=== PATIENT | female | born 1980 | race Caucasian/White ===

== ENCOUNTER 2018-03-28 09:52 | Outpatient (CLI) | payer BC ==
[~2018-03-28] VITALS: Ht 161.3 cm; Wt 81.6 kg
[~2018-03-28 09:52] MED LIST: LEVO137T24 PO; OMEP-10 PO; OXYC500S2 PO; ROPI2TAB3 PO
[2018-03-28] MEDS ORDERED: DULO30CA3 PO (10:17)
[2018-03-28] MEDS ORDERED: PRAM1.5T3 PO (10:17)
[2018-03-28] MEDS ORDERED: RT-ALBUINH IH (11:14)
[2018-03-29] MEDS ORDERED: HYDR-34 PO (12:42)
== END 2018-03-28 11:22 | disposition home or self-care (01) ==
LOC: PREOP 09:52
PROVIDERS: ATTEND Surgery
DX: Z01.818 Encounter for other preprocedural examination (principal)

== ENCOUNTER 2018-03-29 09:00 | Day surgery (SDC) | payer BC ==
[~2018-03-29] VITALS: Ht 161.3 cm; Wt 81.6 kg
[~2018-03-29 09:00] MED LIST changes: +DULO30CA3 PO; +PRAM1.5T3 PO; +RT-ALBUINH IH
[2018-03-29 09:15] VITALS: BP 126/76
[2018-03-29] MEDS ORDERED: ceFAZolin 2 GM IV Premixed 50 ML IV ONE (09:15)
[2018-03-29] MEDS: LACTATED RINGERS 1,000 ML IV PRN ×2 (10:00→11:40)
--- NOTE | 2018-03-29 10:01 | Diagnostic Imaging Report ---
INDICATION: Preoperative evaluation prior to lap-band surgery. PA and lateral views of the chest are obtained. Comparison is made study of 04/27/2011. FINDINGS: Heart size and pulmonary vascularity are within normal limits, and the lungs are clear, bilaterally. Lap band device projects over left upper quadrant of the abdomen. IMPRESSION: Unremarkable chest. Dictated by: Dictated on workstation # [id number]
[2018-03-29] MEDS ORDERED: fentaNYL INJECTION 100 MCG/2 ML AMP IV ONE (10:15)
[2018-03-29] MEDS ORDERED: BUP/EPI 0.5% 1:200,000 (SENSORCAINE) 30 ML VIAL ONE (11:35)
--- NOTE | 2018-03-29 11:55 | Progress Note-Pre Operative ---
Pre-Operative Progress Note H&P Reviewed The H&P was reviewed, patient examined and no changes noted. Date Seen by Provider: Mar 29, 2018 Time Seen by Provider: 11:00 Date H&P Reviewed: Mar 29, 2018 Time H&P Reviewed: 11:00 Pre-Operative Diagnosis: chronic calculous cholecystitis UZIEL VASQUEZ MD Mar 29, 2018 11:55 am
[2018-03-29] MEDS ORDERED: MIDAZOLAM 2 MG/2 ML (VERSED) VIAL ONE (12:05)
[2018-03-29] MEDS ORDERED: fentaNYL INJECTION 100 MCG/2 ML AMP ONE (12:05)
[2018-03-29] MEDS ORDERED: LIDOCAINE PF 2% 5 ML (XYLOCAINE) VIAL ONE (12:13)
[2018-03-29] MEDS ORDERED: proPOfol 200 MG/20 ML (DIPRIVAN) VIAL IV ONE (12:13)
[2018-03-29] MEDS ORDERED: DEXAMETHASONE 10 MG/ML (DECADRON) 1 ML VIAL ONE (12:14)
[2018-03-29] MEDS ORDERED: ONDANSETRON 4 MG/2 ML (SDV) Z0FRAN ONE (12:14)
[2018-03-29] MEDS ORDERED: HYDR-34 PO (12:42)
[2018-03-29] MEDS ORDERED: RT-ALBUTEROL HFA (VENTOLIN) PER PUFF IH ONE (12:42)
--- NOTE | 2018-03-29 12:44 | Discharge Inst-Surgical ---
D/C Lap Instructions-PEDRO New, Converted, or Re-Newed RX: RX on Chart Follow Up Appt. will call Activity as tolerated No driving for 24 hours No driving while on pain medications Incentive Spirometry use every 2 hours while awake Regular Diet Symptoms to Report: Fever over 101 degree F, Nausea/Vomiting Infection Signs and Symptoms to report: Increased redness, Foul odor of wound, Increased drainage Bathing instructions: May shower Operative Area Clean/Dry; Keep incision clean/dry If any problems/questions: Contact your physician or go to Emergency Room UZIEL VASQUEZ MD Mar 29, 2018 12:44 pm
[2018-03-29] MEDS ORDERED: ACETAMINOPHEN 325 MG TABLET PO PRN (12:45)
[2018-03-29] MEDS ORDERED: morphine INJ 10 MG/ML 1ML (SYR OR VIAL) IVP PRN (12:45)
[2018-03-29] MEDS ORDERED: ONDANSETRON 4 MG/2 ML (SDV) Z0FRAN IVP PRN ×2 (12:45→13:45)
[2018-03-29] MEDS ORDERED: ROCURONIUM 10 MG/ML 5 ML SYRINGE IV ONE (12:50)
[2018-03-29] MEDS ORDERED: SEVOFLURANE (ULTANE) 15 ML INHAL SOLN ONE ×4 (12:51→13:27)
[2018-03-29] MEDS ORDERED: GLYCOPYRROLATE 0.2 MG/ML (ROBINUL) 2 ML VIAL ONE (13:05)
[2018-03-29] MEDS ORDERED: NEOSTIGMINE 1 MG/ML 5 ML SYRINGE ONE (13:05)
[2018-03-29] MEDS ORDERED: KETOROLAC 30 MG/ML VIAL ONE (13:07)
--- NOTE | 2018-03-29 13:09 | Progress Note-Post Operative ---
Post-Operative Progess Note Surgeon (s)/Toll Operator (s) Surgeon UZIEL VASQUEZ MD Toll Operator: smooth allen DIRECTOR STAFFING Pre-Operative Diagnosis chronic calculous cholecystitis Post-Operative Diagnosis same Procedure & Operative Findings Date of Procedure 03/29/18 Procedure Performed/Findings laparoscopic cholecystectomy Anesthesia Type GET Estimated Blood Loss Estimated blood loss (mL): minimal Specimens/Packing Specimens Removed gallbladder UZIEL VASQUEZ MD Mar 29, 2018 1:09 pm
[2018-03-29] MEDS ORDERED: morphine INJ 10 MG/ML 1ML (SYR OR VIAL) ONE ×2 (13:12→13:49)
[2018-03-29] MEDS ORDERED: morphine INJ 10 MG/ML 1ML (SYR OR VIAL) IVP ONE (13:45)
[2018-03-29] MEDS: HYDROcodone/APAP 7.5 MG/325 MG (LORTAB, LORCET PLUS) TABLET PO PRN ×2 (15:25→20:01)
[2018-03-29 16:01] VITALS: BP 91/50
[2018-03-29 16:55] VITALS: BP 91/50
[2018-03-29] MEDS ORDERED: FLU QUADRIvalent (5+ YOA) 2018-2019 (AFLURIA) 0.5 ML IM ONE (17:00)
[2018-03-29 19:15] VITALS: BP 107/59
--- NOTE | 2018-03-29 22:07 | OPERATIVE REPORT ---
DATE OF SERVICE: 03/29/2018 PREOPERATIVE DIAGNOSIS: Symptomatic chronic calculous cholecystitis. POSTOPERATIVE DIAGNOSIS: Symptomatic chronic calculous cholecystitis. PROCEDURE: Laparoscopic cholecystectomy. SURGEON: Uziel Vasquez MD FREIGHT COORDINATOR: Romaine Akhtar APRN ANESTHESIA: General endotracheal. ESTIMATED BLOOD LOSS: Minimal. FINDINGS: Mild gallbladder wall dilatation as well as mild gallbladder thickening. Multiple large gallstones. Lap band in proper positioning at approximately the 2 and 8 o'clock position of the upper portion of the stomach. DISPOSITION: The patient tolerated the procedure well. INDICATIONS: The patient is a 37-year-old female known to us. We had initially seen her for morbid obesity as well as medical comorbidities including hypertension, hypercholesterolemia. She is status post laparoscopic adjustable gastric band placement with an Plug.dj AP standard band in 2010. She has done well with weight loss and has kept her weight off. Her initial weight was approximately 300 pounds and she is currently at approximately 180 pounds. She states that she has had pain in the right upper abdominal quadrant usually after meals with intermittent episodes of nausea and vomiting. This was initially mild and infrequent; however, has become much more frequent and this was usually after eating a meal. An ultrasound was performed, which did show gallstones. DESCRIPTION OF PROCEDURE: The patient was brought to the operating room, laid supine on the table. After adequate IV and pain and sedating medications and general endotracheal intubation, the abdomen was prepped and draped in standard surgical fashion. A 0.5% Marcaine with epinephrine was then used to anesthetize the overlying skin in the left upper abdominal quadrant. A small transverse skin incision made using a 15 blade. An 0 silk suture was applied to the medial aspect of the incision for retraction and a Veress needle inserted with a low opening pressure of 0 mmHg and the abdomen was then insufflated to 15 mmHg pressure. The Veress needle removed and a 5 mm Xcel trocar placed followed by a 5 mm 45-degree angle laparoscope. A 4-quadrant abdominal exploration was performed. There was a mild gallbladder wall dilatation as well as gallstones identified ex vivo. After the patient was placed in reverse Trendelenburg position, the laparoscopic adjustable gastric band was identified in approximately the 2 and 8 o'clock position, which was proper and no band erosion identified. Under direct visualization, we then proceeded to place a supraumbilical 10 mm port after the skin and peritoneal lining were anesthetized using 0.5% Marcaine with epinephrine and a transverse skin incision made using 15 blade. In a similar fashion, a right upper abdominal quadrant 5 mm port was placed. The gallbladder was then retracted anteriorly and superiorly. The hepatoduodenal ligament was then opened using electrocautery as well as blunt dissection using a hook instrument. The entire critical view of safety was identified including the triangle of Calot as well as the cystic duct and arteries as the only two structures going into the gallbladder as well as the cystic plate behind the proximal gallbladder. A timeout was then taken and the cystic duct and artery were then clipped proximally, distally and cut with EndoShears. The gallbladder was then dissected off the liver bed using electrocautery and hook instrument with visualization of good hemostasis as well as no leaking ducts of Luschka. The gallbladder was removed through the 10 mm port site using an EndoCatch bag. A 10 mm port site fascia and peritoneum were then closed under direct visualization using a Jay Jay-Hilary device and 0 Vicryl suture. The abdomen was desufflated and remaining ports removed. All skin incisions were closed using 4-0 Monocryl running subcuticular sutures. Wounds were then cleaned and covered with Dermabond. The patient tolerated the procedure well. We will admit her for observation due to pain as well as nausea. We will also start IV and oral pain medication as well as a clear liquid diet and advance as tolerated. When she is tolerating clears, has good pain control with oral pain medications, is ambulating well, we will discharge her home. She will be instructed to do no heavy lifting or exertion for the next two weeks. Job ID: [id number] DocumentID: [id number] Dictated Date: 03/29/2018 13:18:03 Client Manager Large Law Date: 03/29/2018 22:06:32 Dictated By: UZIEL VASQUEZ MD
[2018-03-30] VITALS: BP 113/60
[2018-03-30 01:02] VITALS: BP 113/60
[2018-03-30 04:00] VITALS: BP 96/52
[2018-03-30] MEDS: HYDROcodone/APAP 7.5 MG/325 MG (LORTAB, LORCET PLUS) TABLET PO PRN ×3 (04:19→12:37)
[2018-03-30 08:00] VITALS: BP 122/69
--- NOTE | 2018-03-30 08:57 | Anesthesia-General Post-Op ---
General Patient Condition Mental Status/LOC: Same as Preop Cardiovascular: Satisfactory Nausea/Vomiting: Absent Respiratory: Satisfactory Pain: Controlled Complications: Absent Post Op Complications Complications None Follow Up Care/Instructions Patient Instructions None needed. Anesthesia/Patient Condition Patient Condition Patient is doing well, no complaints, stable vital signs, no apparent adverse anesthesia problems. No complications reported per nursing. ZAHEER BUCHANAN CRNA Mar 30, 2018 08:57
--- NOTE | 2018-03-30 12:42 | Progress Note (SOAP) ---
Subjective Date Seen by a Provider: Mar 30, 2018 Time Seen by a Provider: 12:00 Subjective/Events-last exam doing well. breathing much better. tolerating diet. pain controlled. Objective Exam Vital Signs Date Time Temp Pulse Resp B/P (MAP) Pulse Ox O2 Delivery O2 Flow Rate FiO2 03/30/18 08:00 98.3 60 20 122/69 (86) 97 Room Air 03/30/18 08:00 Room Air 03/30/18 04:00 98.2 53 18 96/52 (67) 94 Room Air 03/30/18 01:02 97.7 54 16 113/60 (77) 95 Room Air 03/30/18 00:00 97.7 54 16 113/60 (77) 95 Room Air 03/29/18 20:00 Room Air 03/29/18 19:15 98.6 55 18 107/59 (75) 91 Room Air 03/29/18 16:55 98.6 58 18 91/50 (64) 94 03/29/18 15:30 Room Air I & O 03/30/18 07:00 Intake Total 1640 ml Balance 1640 ml Capillary Refill : General Appearance: No Apparent Distress HEENT: PERRL/EOMI Neck: Full Range of Motion Respiratory: Chest Non Tender, Normal Breath Sounds, Wheezing Cardiovascular: Regular Rate, Rhythm Gastrointestinal: normal bowel sounds, soft, tenderness Extremity: Normal Capillary Refill Neurologic/Psychiatric: Alert, Oriented x3 Skin: Normal Color Lymphatic: No Adenopathy Assessment/Plan Assessment/Plan Assess & Plan/Chief Complaint s/p laparoscopic cholecystectomy with reactive airway disease. breathing much better. ambulating well. home soon. Clinical Quality Measures DVT/VTE Risk/Contraindication: Risk Factor Score Per Nursin RFS Level Per Nursing on Admit: 1=Low/No VTE PPX UZIEL VASQUEZ MD Mar 30, 2018 12:42 pm
--- NOTE | 2018-03-30 12:43 | Discharge Inst-Surgical ---
D/C Lap Instructions-PEDRO Follow Up PRN or call if issues. Activity as tolerated No driving for 24 hours No driving while on pain medications Incentive Spirometry use every 2 hours while awake Regular Diet Symptoms to Report: Fever over 101 degree F, Nausea/Vomiting Infection Signs and Symptoms to report: Increased redness, Foul odor of wound, Increased drainage Bathing instructions: May shower Operative Area Clean/Dry; Keep incision clean/dry If any problems/questions: Contact your physician or go to Emergency Room UZIEL VASQUEZ MD Mar 30, 2018 12:43 pm
[2018-03-30 13:13] VITALS: BP 122/69
== END 2018-03-30 13:04 | disposition home or self-care (01) ==
LOC: SDC 09:00 → 4TH 14:20 → SDC 03-30 13:04
PROVIDERS: ATTEND Surgery
DX: K80.10 Calculus of gallbladder with chronic cholecystitis without obstruction (principal); Z11.2 Encounter for screening for other bacterial diseases; Z98.84 Bariatric surgery status; K21.9 Gastro-esophageal reflux disease without esophagitis; F17.210 Nicotine dependence, cigarettes, uncomplicated; Z80.8 Family history of malignant neoplasm of other organs or systems; J45.909 Unspecified asthma, uncomplicated; E66.9 Obesity, unspecified; Z68.31 Body mass index [BMI] 31.0-31.9, adult; Z79.899 Other long term (current) drug therapy
CPT/HCPCS: 71046; 87081; 88304; 94664

== ENCOUNTER 2018-10-24 13:20 | Outpatient (CLI) | payer BC ==
[~2018-10-24] VITALS: Ht 161.3 cm; Wt 81.6 kg
[~2018-10-24 13:20] MED LIST changes: +HYDR-34 PO
[2018-10-25] MEDS ORDERED: HYDR-34 PO (12:59)
== END 2018-10-24 13:40 | disposition home or self-care (01) ==
LOC: PREOP 13:20
PROVIDERS: ATTEND Surgery
DX: Z01.818 Encounter for other preprocedural examination (principal)

== ENCOUNTER 2018-10-25 11:11 | Day surgery (SDC) | payer BC ==
[2018-10-25] VITALS (12 sets, daily range): BP systolic 97–132; BP diastolic 56–79
[~2018-10-25] VITALS: Ht 162.6 cm; Wt 81.6 kg
[2018-10-25] MEDS ORDERED: CLINDAMYCIN 600 MG/50 ML IVPB 50 ML IV ONE ×2 (11:50→12:00)
[2018-10-25 12:04] LABS: BASOPHILS % (AUTO) 0 % (0-10); EOSINOPHILS # (AUTO) 0.3 10^3/uL (0.0-0.3); EOSINOPHILS % (AUTO) 5 % (0-10); HEMATOCRIT 44 % (35-52); HEMOGLOBIN 14.7 G/DL (11.5-16.0); LYMPHOCYTES # (AUTO) 1.8 X 10^3 (1.0-4.0); LYMPHOCYTES % (AUTO) 35 % (12-44); MEAN CORPUSCULAR HEMOGLOBIN 28 PG (25-34); MEAN CORPUSCULAR HGB CONC 34 G/DL (32-36); MEAN CORPUSCULAR VOLUME 84 FL (80-99); MEAN PLATELET VOLUME 11.5 FL (7.4-10.4); MONOCYTES # (AUTO) 0.4 X 10^3 (0.0-1.0); MONOCYTES % (AUTO) 7 % (0-12); NEUTROPHILS # (AUTO) 2.7 X 10^3 (1.8-7.8); NEUTROPHILS % (AUTO) 53 % (42-75); PLATELET COUNT 171 10^3/uL (130-400); RED CELL DISTRIBUTION WIDTH 14.2 % (10.0-14.5); WHITE BLOOD COUNT 5.2 10^3/uL (4.3-11.0)
[2018-10-25] MEDS: LACTATED RINGERS 1,000 ML IV PRN ×2 (12:15→16:16)
--- NOTE | 2018-10-25 12:58 | Progress Note-Pre Operative ---
Pre-Operative Progress Note H&P Reviewed The H&P was reviewed, patient examined and no changes noted. Date Seen by Provider: October 25, 2018 Time Seen by Provider: 12:30 Date H&P Reviewed: October 25, 2018 Time H&P Reviewed: 12:30 Pre-Operative Diagnosis: hx small bowel obstruction and internal hernia. UZIEL VASQUEZ MD October 25, 2018 12:58
[2018-10-25] MEDS ORDERED: HYDR-34 PO (12:59)
[2018-10-25] MEDS ORDERED: ONDANSETRON 4 MG/2 ML (SDV) Z0FRAN IVP PRN ×2 (13:00→16:15)
[2018-10-25] MEDS ORDERED: ACETAMINOPHEN 325 MG TABLET PO PRN (13:00)
[2018-10-25] MEDS ORDERED: morphine INJ 10 MG/ML 1ML (SYR OR VIAL) IVP PRN ×2 (13:00)
--- NOTE | 2018-10-25 13:00 | Discharge Inst-Surgical ---
D/C Lap Instructions-PEDRO New, Converted, or Re-Newed RX: RX on Chart Follow Up Appt in 2 weeks Activity as tolerated No driving for 24 hours No driving while on pain medications Incentive Spirometry use every 2 hours while awake Regular Diet Symptoms to Report: Fever over 101 degree F, Nausea/Vomiting Infection Signs and Symptoms to report: Increased redness, Foul odor of wound, Increased drainage Bathing instructions: May shower Operative Area Clean/Dry; Keep incision clean/dry If any problems/questions: Contact your physician or go to Emergency Room UZIEL VASQUEZ MD October 25, 2018 13:00
[2018-10-25] MEDS ORDERED: BUP/EPI 0.5% 1:200,000 (SENSORCAINE) 30 ML VIAL ONE (13:58)
[2018-10-25] MEDS ORDERED: MIDAZOLAM 2 MG/2 ML (VERSED) VIAL ONE (14:18)
[2018-10-25] MEDS ORDERED: fentaNYL INJECTION 100 MCG/2 ML AMP ONE ×2 (14:18→15:41)
[2018-10-25] MEDS ORDERED: proPOfol 200 MG/20 ML (DIPRIVAN) VIAL IV ONE ×2 (14:18→15:42)
[2018-10-25] MEDS ORDERED: GLYCOPYRROLATE 0.2 MG/ML (ROBINUL) 2 ML VIAL ONE ×2 (14:18→15:36)
[2018-10-25] MEDS ORDERED: DEXAMETHASONE 10 MG/ML (DECADRON) 1 ML VIAL ONE (14:18)
[2018-10-25] MEDS ORDERED: LIDOCAINE PF 2% 5 ML (XYLOCAINE) VIAL ONE (14:18)
[2018-10-25] MEDS ORDERED: NEOSTIGMINE 1 MG/ML 5 ML SYRINGE ONE ×2 (14:18→15:36)
[2018-10-25] MEDS ORDERED: SEVOFLURANE (ULTANE) 15 ML INHAL SOLN ONE ×2 (14:18→15:35)
[2018-10-25] MEDS ORDERED: ROCURONIUM 10 MG/ML 5 ML SYRINGE IV ONE (14:18)
[2018-10-25] MEDS ORDERED: ONDANSETRON 4 MG/2 ML (SDV) Z0FRAN ONE (14:18)
[2018-10-25] MEDS: oxyCODONE/APAP 5/325MG (PERCOCET 5) TABLET PO PRN ×2 (15:23→17:23)
[2018-10-25] MEDS ORDERED: KETOROLAC 30 MG/ML VIAL ONE (15:46)
--- NOTE | 2018-10-25 15:52 | Progress Note-Post Operative ---
Post-Operative Progess Note Surgeon (s)/Sales Development Manager (s) Surgeon UZIEL VASQUEZ MD Sales Development Manager: smooth allen APRN Pre-Operative Diagnosis hx small bowel obstruction and internal hernia. Post-Operative Diagnosis same Procedure & Operative Findings Date of Procedure 10/25/18 Procedure Performed/Findings adjustment band tubing and subcutaneous adjustment device. Anesthesia Type GET Estimated Blood Loss Estimated blood loss (mL): minimal Specimens/Packing Specimens Removed none UZIEL VASQUEZ MD October 25, 2018 15:52
[2018-10-25] MEDS ORDERED: HYDROmorphone 2 MG/ML VIAL (DILAUDID) ONE (16:08)
[2018-10-25] MEDS ORDERED: HYDROmorphone 2 MG/ML VIAL (DILAUDID) IV ONE (16:15)
--- NOTE | 2018-10-25 18:52 | Anesthesia-General Post-Op ---
General Patient Condition Mental Status/LOC: Same as Preop Cardiovascular: Satisfactory Nausea/Vomiting: Absent Respiratory: Satisfactory Pain: Controlled Complications: Absent Post Op Complications Complications None Follow Up Care/Instructions Patient Instructions None needed. Anesthesia/Patient Condition Patient Condition Patient is doing well, no complaints, stable vital signs, no apparent adverse anesthesia problems. No complications reported per nursing. D/C home per [facility] Criteria: Yes SHEEBA CHOWDHURY CRNA October 25, 2018 18:52
--- NOTE | 2018-10-25 21:49 | OPERATIVE REPORT ---
DATE OF SERVICE: 10/25/2018 ATTENDING PRIMARY CARE PHYSICIAN: ЮЛИЯ Lackey. PREOPERATIVE DIAGNOSES: History of partial small bowel obstruction and internal herniation, greater than 90-degree flipped subcutaneous adjustment device for laparoscopic adjustable gastric band. POSTOPERATIVE DIAGNOSIS: Redundant band tubing, previous history of internal small bowel hernia and partial small-bowel obstruction. PROCEDURE PERFORMED: Adjustment intraperitoneal band tubing and subcutaneous adjustment device. SURGEON: Uziel Vasquez MD. DIGITAL ASSET MANAGER: Romaine Akhtar APRN. ANESTHESIA: General endotracheal. ESTIMATED BLOOD LOSS: Minimal. FINDINGS: Greater than 90-degree inferior port flip. There was a significant redundancy in length of the band tubing, most likely secondary to body habitus and change in weight loss. DISPOSITION: The patient tolerated the procedure well. INDICATIONS: The patient is a 38-year-old female known to us. We had initially seen her in 2010 for morbid obesity as well as medical comorbidities including hypertension and gastroesophageal reflux disease. She underwent a laparoscopic adjustable gastric band placement within Allerg APS band on 05/05/2011. She lost approximately 180 pounds over eight years and did develop pain in the right upper abdominal quadrant. An ultrasound was performed, which did show gallbladder wall thickening as well as gallstones and this was also confirmed on an MRI of the abdomen and she then underwent a laparoscopic cholecystectomy on 03/29/2018. She presented to her nearby hospital in [place], [place] due to acute onset of abdominal pain. A CT scan was performed, which did show some dilated loops of small bowel and she continued to have pain and was brought to the operating room on 10/17/2018, underwent diagnostic laparoscopy and found to have some form of internal herniation of small bowel around the adjustable gastric band tubing. This was unraveled and there did not appear to be any ischemic changes, only mild amount of irritation along the bowel mesentery. She also underwent a laparoscopic appendectomy to eliminate this as a etiology of a potential source of recurrent pain. Based on her symptomatology as well as a significant weight loss, she more than likely has redundancy of her mesentery and loops of small bowel and also result of redundancy of the band tubing which did cause a temporary obstruction due to an internal hernia type of scenario. The patient also does have a flipped port, which is greater than 90 degrees inferior. Due to these issues and risk of recurrent internal herniation, incarceration and strangulation, we will recommend removing the redundancy of the length of the band tubing as well as to reposition the port. DESCRIPTION OF PROCEDURE: The patient was brought to the operating room, laid supine on the table. After adequate IV pain and sedative medications and general endotracheal intubation, the abdomen was prepped and draped in standard surgical fashion. A 0.5% Marcaine with epinephrine was used to anesthetize overlying skin above the previous port incision along the right upper abdomen. A skin incision was then made using a 15-blade. Subcutaneous tissue was dissected down to the port. The port was flipped inferiorly slightly greater than 90 degrees. The capsule inside the port was then opened using cautery. The base of the port was then clamped with a Liudmila and pulled superiorly and the previous Surgidac sutures identified and cut out using suture scissors and the port was completely eviscerated out of the capsule. The capsule was also excised using electrocautery. The band tubing was then dissected down to the fascial base and then pulled and the redundancy pulled without any resistance until there was a mild resistance. Approximately, 8-10 cm segment of the tubing was then excised after the proximal and distal ends were clamped with mosquito clamps with a rubber shod on them. There was then no loss of any fluid within the band itself or remainder of the tubing. The port was then placed onto the band tubing with the same through a metal adapter. There was no resistance on the tubing. We then proceeded to reposition the port slightly superior to the previous site and an area along the fascia was cleared off using electrocautery. We then proceeded to place #1 Prolene sutures on 4-quadrants of the fascia and the port sutured down to the fascia. The subcutaneous tissue was then reapproximated using 3-0 Vicryl interrupted suture and the skin was closed using 4-0 Monocryl running subcuticular suture and covered with Dermabond. The patient tolerated the procedure well. We will start IV and oral pain medication as well as a clear liquid diet. Once she is tolerating clears, has good pain control with oral pain medication and is ambulating well, we will discharge her home. We will recommend a clear liquid diet today; however, will go back to her normal diet as she was on before the procedure. We will also recommend continued medical management with a high protein diet with lean meat protein sources as well as regularly scheduled exercise. We will have followup in approximately 2 weeks. Job ID: [id number] DocumentID: [id number] Dictated Date: 10/25/2018 16:06:18 Sql Engineer Date: 10/25/2018 21:49:04 Dictated By: UZIEL VASQUEZ MD MTDD
--- NOTE | 2018-10-29 08:33 | HISTORY AND PHYSICAL ---
DATE OF ADMISSION: 10/25/2018. ATTENDING PRIMARY CARE PHYSICIAN: ЮЛИЯ Lackey. HISTORY OF PRESENT ILLNESS: The patient is a 38-year-old female known to us. We had initially seen her in 2010 for morbid obesity as well as medical comorbidities related to her obesity including hypertension and gastroesophageal reflux disease. She underwent a laparoscopic adjustable gastric band placement with an Allergan APS band on 05/05/2011. She has lost approximately 180 pounds over eight years. She did have develop pain in the right upper abdominal quadrant and an ultrasound was performed, which did show gallbladder wall thickening as well as gallstones. This was also confirmed on MRI of the abdomen. She underwent a laparoscopic cholecystectomy on 03/29/2018. She presented to her nearby hospital in [place], [place] due to acute onset of abdominal pain. A CT scan was performed, which did show some dilated loops of small bowel. She continued to have pain and was brought to the operating room on 10/17/2018 and underwent a diagnostic laparoscopy and was found to have a form of internal herniation of small bowel around the adjustable gastric band tubing. This was unraveled and there did not appear to be any ischemic changes with a mild amount of irritation along the bowel mesentery. The patient also underwent a laparoscopic appendectomy to eliminate this as part of the differential diagnosis if she had recurrent pain. Based on her symptomatology, due to her significant weight loss she more than likely does have some redundancy of her mesentery and loops of small bowel and there is some redundancy in the band tubing and this did cause a temporary obstruction due to an internal hernia type of scenario. The patient also does have a flipped port. Due to these issues and risk of recurrent internal herniation, incarceration as well as strangulation we will recommend removing the redundancy of the tubing in her band due to her change in body habitus with her weight loss as well as repositioning of the port. PAST MEDICAL HISTORY: Gastroesophageal reflux disease. PAST SURGICAL HISTORY: Total hysterectomy in 2017, laparoscopic adjustable gastric band with Allergan APS band in 2010, right knee arthroscopy in 2016, laparoscopic cholecystectomy on 03/29/2018. ALLERGIES: No known drug allergies. MEDICATIONS: Mirapex 1 mg daily, Cymbalta 30 mg daily, Symbicort 1 puff daily, albuterol p.r.n., estradiol patch. SOCIAL HISTORY: Positive smoke 7.5 pack years. Negative alcohol. FAMILY HISTORY: Sister papillary thyroid cancer. VITAL SIGNS: Blood pressure 112/62. Current weight 180 pounds at 5 feet 4 inches. REVIEW OF SYSTEMS: This is well-nourished female, currently in no acute distress. She is not experiencing any shortness of breath or difficulty breathing. No chest pain, palpitations, or diaphoresis. No nausea or vomiting. No diarrhea or constipation. No red blood per rectum, no dark tarry stools. No fever or chills. No recent inadvertent weight loss. All other review of systems negative. PHYSICAL EXAMINATION: CHEST: Clear. Good breath sounds bilaterally. HEART: Regular, no murmurs. EXTREMITIES: No lower extremity edema, negative Homans sign. HEENT: No scleral icterus. NECK: No cervical lymphadenopathy. ABDOMEN: Soft with some mild tenderness around the port, which is flipped approximately greater than 90 degrees from horizontal. There is mild discomfort along the mid abdominal region; however, no peritoneal signs. There is no abdominal distention. SKIN: Warm and dry. 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 This is a rare entity; however, due to significant weight loss and change in body habitus there does seem to be an increased in redundancy of mesentery and loops of small bowel, which may increase the incidence of this phenomenon. In this scenario recommendation is to remove the laxity of the band where her band tubing where it is only in the upper portion of the upper abdomen to prevent recurrent issues with internal herniation and risk of bowel obstruction and potential incarceration and strangulation of small bowel. She also does have a greater than 90 degree port flip, which we will reset in a horizontal plane. Job ID: [id number] DocumentID: [id number] Dictated Date: 10/24/2018 16:39:32 Administrative Operations Coordinator Date: 10/24/2018 17:13:41 Dictated By: UZIEL VASQUEZ MD <Dictated by UZIEL VASQUEZ MD> <Electronically signed by UZIEL VASQUEZ MD> 10/25/18 0913
== END 2018-10-25 18:15 | disposition home or self-care (01) ==
LOC: SDC 11:11
PROVIDERS: ATTEND Surgery
DX: K95.09 Other complications of gastric band procedure (principal); K21.9 Gastro-esophageal reflux disease without esophagitis; F17.210 Nicotine dependence, cigarettes, uncomplicated; J45.909 Unspecified asthma, uncomplicated; E66.9 Obesity, unspecified; Z68.31 Body mass index [BMI] 31.0-31.9, adult; Z79.899 Other long term (current) drug therapy
CPT/HCPCS: 36415; 85025; 87081

== ENCOUNTER 2020-07-17 05:51 | Outpatient (RCR) | payer BC ==
[~2020-07-17] VITALS: Ht 165.1 cm; Wt 77.2 kg
[2020-07-20] MEDS ORDERED: LEVO50CA4 PO (13:55)
[2020-07-22] MEDS ORDERED: PANT40TA2 PO (11:57)
== END 2020-07-20 15:40 | disposition home or self-care (01) ==
LOC: PREOP 05:51
PROVIDERS: ATTEND Surgery
DX: Z01.818 Encounter for other preprocedural examination (principal)

== ENCOUNTER 2020-07-22 11:33 | Day surgery (SDC) | payer BC ==
--- NOTE | 2020-07-18 17:44 | HISTORY AND PHYSICAL ---
DATE OF SERVICE: ATTENDING PRIMARY CARE PHYSICIAN: ЮЛИЯ Lackey. HISTORY OF PRESENT ILLNESS: The patient is a 39-year-old female known to us. We had initially seen her in 2010 for morbid obesity as well as medical comorbidities including hypertension, gastroesophageal reflux disease. She underwent a laparoscopic adjustable gastric band with an [employer] AP standard band on 07/06/2010. She has lost approximately 180 pounds over 8 years. She did develop pain in the right upper abdominal quadrant and an ultrasound was performed, which did show gallbladder wall thickening, gallstones and she underwent a laparoscopic cholecystectomy on 03/29/2018. She had another issue with acute onset of abdominal pain in the left upper abdominal quadrant and a CT scan was performed, which again only showed dilated loops of small bowel. On 10/17/2018, she underwent a diagnostic laparoscopy and was found to have a form of internal herniation of small bowel around the adjustable gastric band tubing, which was unraveled and there were no ischemic changes identified. She continues to have issues with significant reflux as well as intermittent dysphagia despite doing frequent lap band adjustments. All the fluid was removed from the band recently and she did undergo an upper GI contrast study at a local hospital closer to home, which did not show any obstruction; however, we do suspect the patient does have inferior band slippage. She also has developed continued epigastric pain as well as dark stools. PAST MEDICAL HISTORY: Gastroesophageal reflux disease. PAST SURGICAL HISTORY: Total hysterectomy in 2016, laparoscopic adjustable gastric band in 2010, right knee arthroscopy in 2016, laparoscopic cholecystectomy on 03/29/2018, diagnostic laparoscopy and lysis of adhesions as well as adjustment of the subcutaneous adjustment device on 10/25/2018. ALLERGIES: No known drug allergies. MEDICATIONS: Mirapex 1 mg daily, Cymbalta 30 mg daily, Symbicort 1 puff b.i.d., albuterol p.r.n., estradiol patch. SOCIAL HISTORY: Positive smoke 7-pack years. Negative alcohol. FAMILY HISTORY: Sister papillary thyroid cancer. VITAL SIGNS: Stable. Blood pressure 112/62. Current weight 164.3 pounds at 5 feet 5 inches and a body mass index of 27.4. REVIEW OF SYSTEMS: Well-nourished female, currently in no acute distress. She is not experiencing any shortness of breath or difficulty breathing. No chest pain, palpitations, diaphoresis. Intermittent episodes of epigastric sharp pain, no recent nausea nor vomiting as well as no hematemesis, no coffee ground emesis. She does also report noticing dark stools in the past few weeks as well. No fever, chills, no recent inadvertent weight loss. All other review of systems negative. PHYSICAL EXAMINATION: CHEST: Clear. Good breath sounds bilaterally. HEART: Regular, no murmurs. EXTREMITIES: No lower extremity edema, negative Homans sign. HEENT: No scleral icterus. NECK: No cervical lymphadenopathy. ABDOMEN: Soft, nondistended. There is pain in the epigastric as well as left upper abdominal quadrant upon deep palpation; however, no peritoneal signs. There are no hernias palpable. SKIN: Warm, dry. ASSESSMENT AND PLAN: A 39-year-old female with frequent gastroesophageal reflux disease and regurgitation despite medical compliance, status post adjustable gastric band as well as adequate adjustments as well as the development of dark tarry stools. We will proceed with an EGD as well as biopsies as well as a colonoscopy. If the band has slipped inferiorly, which we do have a high suspicion. We will then later proceed with removal of the laparoscopic adjustable gastric band. Job ID: [id number] DocumentID: [id number] Dictated Date: 07/18/2020 16:40:15 Scheduling Clerk Date: 07/18/2020 17:10:33 Dictated By: UZIEL VASQUEZ MD
[~2020-07-22] VITALS: Ht 165.1 cm; Wt 77.2 kg
[~2020-07-22 11:33] MED LIST changes: +LEVO50CA4 PO
--- NOTE | 2020-07-22 11:56 | Conscious Sedation/ASA ---
Conscious Sedation Pre-Proced Time 11:30 ASA Score 2 For ASA 3 and 4: Consider anesthesia and medical clearance. Also, for patients with a history of failed moderate sedation consider anesthesia. Airway Lungs Heart ASA score ASA 1: a normal healthy patient ASA 2: a patient with a mild systemic disease (mid diabetes, controlled hypertension, obesity ASA 3: a patient with a severe systemic disease that limits activity (angina, COPD, prior Myocardial infarction) ASA 4: a patient with an incapacitating disease that is a constant threat to life (CHF, renal failure) ASA 5: a moribund patient not expected to survive 24 hrs. (ruptured aneurysm) ASA 6: a declared brain- patient whose organs are being harvested. For emergent operations, add the letter E after the classification Mallampati Classification Grade 2 Sedation Plan Analgesia, Amnesia, Plan communicated to team members, Discussed options with patient/fam, Discussed risks with patient/fam The patient is an appropriate candidate to undergo the planned procedure, sedation, and anesthesia. The patient immediately re-assessed prior to indication. UZIEL VASQUEZ MD Jul 22, 2020 11:56
--- NOTE | 2020-07-22 11:56 | Progress Note-Pre Operative ---
Pre-Operative Progress Note H&P Reviewed The H&P was reviewed, patient examined and no changes noted. Date Seen by Provider: Jul 22, 2020 Time Seen by Provider: 11: Date H&P Reviewed: Jul 22, 2020 Time H&P Reviewed: :30 Pre-Operative Diagnosis: GERD, dysphagia, dark tarry stools UZIEL VASQUEZ MD Jul 22, 2020 11:56
[2020-07-22] MEDS ORDERED: PANT40TA2 PO (11:57)
--- NOTE | 2020-07-22 11:58 | Discharge Inst-Surgical ---
D/C Lap Instructions-PEDRO Follow Up Activity as tolerated High Fiber Diet 25g or more per day Avoid Alcohol, Caffeine, Spicy [place] and Acid foods. Drink 64 fluid oz or more of fluids per day. Symptoms to Report: Fever over 101 degree F, Nausea/Vomiting If any problems/questions: Contact your physician or go to Emergency Room UZIEL VASQUEZ MD Jul 22, 2020 11:58
[2020-07-22] MEDS ORDERED: HYDROcodone/APAP 5 MG/325 MG (LORTAB) TAB PO PRN (12:00)
[2020-07-22] MEDS ORDERED: ACETAMINOPHEN 325 MG TABLET PO PRN (12:00)
[2020-07-22] MEDS ORDERED: morphine INJ 10 MG/ML 1ML (SYR OR VIAL) IVP PRN ×2 (12:00)
[2020-07-22] MEDS ORDERED: ONDANSETRON 4 MG/2 ML (SDV) Z0FRAN IVP PRN (12:00)
[2020-07-22] MEDS ORDERED: NS IV 500 ML 500 ML ONE (12:06)
[2020-07-22 12:15] VITALS: BP 128/63
[2020-07-22] MEDS ORDERED: LIDOCAINE JELLY 2% 6 ML SYRINGE MM PRN (12:15)
[2020-07-22] MEDS ORDERED: NS IV 500 ML 500 ML IV PRN (12:15)
[2020-07-22] MEDS ORDERED: MIDAZOLAM 5 MG/5 ML (VERSED) VIAL IV ONE (12:15)
[2020-07-22] MEDS ORDERED: HURRICAINE EXT TUBE (BENZOCAINE) XX PRN (12:15)
[2020-07-22] MEDS ORDERED: fentaNYL INJECTION 100 MCG/2 ML AMP IVP ONE (12:15)
[2020-07-22] MEDS ORDERED: MIDAZOLAM 2 MG/2 ML (VERSED) VIAL ONE ×2 (12:20→13:50)
[2020-07-22] MEDS ORDERED: MIDAZOLAM 2 MG/2 ML (VERSED) VIAL IVP ONE (12:30)
[2020-07-22] MEDS ORDERED: LIDOCAINE JELLY 2% 6 ML SYRINGE ONE (12:54)
[2020-07-22] MEDS ORDERED: MIDAZOLAM 5 MG/5 ML (VERSED) VIAL ONE ×2 (12:55)
[2020-07-22] MEDS ORDERED: fentaNYL INJECTION 100 MCG/2 ML AMP ONE (12:55)
[2020-07-22] MEDS ORDERED: PROPOFOL INJECTION 50 ML IV ONE ×2 (13:50→14:16)
[2020-07-22 14:30] VITALS: BP 114/83
[2020-07-22 14:35] VITALS: BP 114/79
[2020-07-22 14:40] VITALS: BP 121/77
[2020-07-22 14:45] VITALS: BP 121/77
--- NOTE | 2020-07-22 14:46 | Progress Note-Post Operative ---
Post-Operative Progess Note Surgeon (s)/Valver (s) Surgeon UZIEL VASQUEZ MD Valver: none Pre-Operative Diagnosis GERD, dysphagia, dark tarry stools Post-Operative Diagnosis reflux esophagitis(stage 2), very small gastric pouch next to ge jxn indicating superior band slippage, moderate gastritis, no distal obstructions. mild chronic stage 2 ext and int hemorrhoids. Procedure & Operative Findings Date of Procedure 07/22/20 Procedure Performed/Findings EGD with bx. colonoscopy. Anesthesia Type mac Estimated Blood Loss Estimated blood loss (mL): minimal Specimens/Packing Specimens Removed ge jxn, antrum. UZIEL VASQUEZ MD Jul 22, 2020 14:46
--- NOTE | 2020-07-22 14:46 | Anesthesia-General Post-Op ---
MAC Patient Condition Mental Status/LOC: Same as Preop Cardiovascular: Satisfactory Nausea/Vomiting: Absent Respiratory: Satisfactory Pain: Controlled Complications: Absent Post Op Complications Complications None Follow Up Care/Instructions Patient Instructions None needed. Anesthesiology Discharge Order Discharge Order Patient is doing well, no complaints, stable vital signs, no apparent adverse anesthesia problems. No complications reported per nursing. BRADY CAREY CRNA Jul 22, 2020 14:46
[2020-07-22 15:18] VITALS: BP 120/79
--- NOTE | 2020-07-22 19:05 | OPERATIVE REPORT ---
DATE OF SERVICE: 07/22/2020 ATTENDING TRAFFIC WORKFORCE REPRESENTATIVE: ЮЛИЯ Lackey PREOPERATIVE DIAGNOSES: Dysphagia, gastroesophageal reflux disease, dark tarry stools. POSTOPERATIVE DIAGNOSES: Reflux esophagitis stage II, very small gastric pouch likely indicating superiorly slipped gastric band, no band erosion. Moderate gastritis. No distal obstructions. Mild chronic stage II external and internal hemorrhoids. Remainder of the rectum and colon were normal. PROCEDURE: EGD with biopsy, colonoscopy. SURGEON: Uziel Vasquez MD. ANESTHESIA: Monitored anesthesia care. ESTIMATED BLOOD LOSS: Minimal. FINDINGS: Reflux esophagitis stage II, very small gastric pouch likely indicating superiorly slipped gastric band, no band erosion. Moderate gastritis. No distal obstructions. Mild chronic stage II external and internal hemorrhoids. Remainder of the rectum and colon were normal. DISPOSITION: The patient tolerated the procedure well. INDICATIONS: The patient is a 40-year-old female known to us. We had initially seen her in 2010 for morbid obesity as well as medical comorbidities including hypertension and gastroesophageal reflux disease. She underwent a laparoscopic adjustable gastric band with an [employer] AP standard band on 07/06/2010. She has lost approximately 180 pounds over 8 years. She did develop pain in the right upper abdominal quadrant and was found to have gallstones and underwent a laparoscopic cholecystectomy on 03/29/2018. She had another issue with acute onset of abdominal pain in the left upper abdominal quadrant and a CT scan was performed, which showed some dilated loops of small bowel and on 11/17/2018, she underwent a diagnostic laparoscopy and was found to have some form of internal herniation of small bowel around the adjustable gastric band tubing which was unraveled and there were no ischemic changes identified. She continues to have issues with significant reflux and epigastric pain as well as dysphagia despite having frequent lap band adjustments including addition as well as removal of fluid and now has all of the fluid removed from the band. She also did have an upper GI contrast study performed, which did not show any obstruction; however, we do suspect a band slippage. She also has developed dark tarry stools. DESCRIPTION OF PROCEDURE: The patient was brought to the endoscopy suite, laid in the left lateral decubitus position. After adequate IV pain and sedative medications and monitored anesthesia care, the mouthpiece was applied. Endoscope was then placed in the mouth, visualizing the pharynx and hypopharyngeal region. Vocal cords, epiglottis and vallecula identified and appeared to be normal. The endoscope was then gently intubated into the esophageal opening and esophagus insufflated. The endoscope was then advanced to the first, second and third portion of esophagus at the level of the GE junction, a reflux esophagitis stage II identified. No ulcers or strictures identified in this region. A biopsy was taken with forceps with visualization of good hemostasis. A very small gastric pouch was identified next to the GE junction, likely indicating superiorly slipped gastric band. The endoscope was easily passed through the band and endoscope retroflexed, visualizing the band as well as no signs of band erosion. There was a moderate severity gastritis. No formal ulcerations, polyps, or any neoplasms. A biopsy was taken of the antrum to rule out H. pylori with visualization of good hemostasis. The endoscope was then advanced to the pylorus and the first and second portion of the duodenum, which appeared normal with no distal obstructions. The endoscope was then slowly withdrawn while taking a second look and suctioning residual air with no additional findings. Under the same anesthesia, we then proceeded with the colonoscopy portion of the procedure where digital rectal examination was performed, which revealed chronic stage II external and internal hemorrhoids, not actively edematous nor inflamed and no bleeding. Normal sphincter tone was felt and there were no palpable masses. The endoscope was then intubated to the anus and rectum gently insufflated. The endoscope was then advanced through the valves of Gutiérrez of the rectum with no polyps or any neoplasms identified. We then proceeded through the sigmoid colon where no diverticulosis identified. The endoscope was then advanced to the remainder of the descending, transverse and ascending colon to the cecum, which were normal. There were no bleeding sources identified as well as no polyps or any neoplasms. The endoscope was then slowly withdrawn while taking a second look and suctioning of residual air with no additional findings. The patient tolerated the procedure well. Due to her continued symptomatology as well as the findings on the upper endoscopy, she will likely have continued symptoms of dysphagia and reflux from the band and if she wishes to do so, we will recommend laparoscopic removal of the band and at a later time approximately 8 weeks later, she can then wait to then proceed with a gastric sleeve resection. For now, we will just have her continue with medical management with small more frequent meals, avoidance of eating at night as well as head elevation while lying supine as well as avoidance of caffeinated beverages, spicy, greasy and acidic foods and start her on Protonix 40 mg daily. Job ID: [id number] DocumentID: [id number] Dictated Date: 07/22/2020 14:42:38 Railroad Wheels And Axle Inspector Date: 07/22/2020 19:03:57 Dictated By: UZIEL VASQUEZ MD
== END 2020-07-22 15:25 | disposition home or self-care (01) ==
LOC: ENDO 11:33
PROVIDERS: ATTEND Surgery
DX: K21.00 Gastro-esophageal reflux disease with esophagitis, without bleeding (principal); K29.70 Gastritis, unspecified, without bleeding; K64.1 Second degree hemorrhoids; I10 Essential (primary) hypertension; J45.909 Unspecified asthma, uncomplicated; E03.9 Hypothyroidism, unspecified; F17.210 Nicotine dependence, cigarettes, uncomplicated; E66.01 Morbid (severe) obesity due to excess calories; Z68.28 Body mass index [BMI] 28.0-28.9, adult; Z79.899 Other long term (current) drug therapy; Z79.51 Long term (current) use of inhaled steroids; Z88.1 Allergy status to other antibiotic agents; Z90.710 Acquired absence of both cervix and uterus